=== PATIENT | female | born 1980 | race Two or more races ===

== ENCOUNTER 2019-12-17 22:42 | Emergency (ER) | payer SELFPAY ==
[~2019-12-17] VITALS: Ht 175.3 cm; Wt 90.0 kg
--- NOTE | 2019-12-18 00:09 | NUR ---
PT TO ROOM FROM LOBBY
[2019-12-18] MEDS ORDERED: KETOROLAC 30 MG/1 ML ONE (00:29)
[2019-12-18] MEDS ORDERED: ACETAMINOPHEN 500 MG TABLET ONE (00:30)
[2019-12-18] MEDS ORDERED: KETOROLAC 30 MG/1 ML IM ONE (00:30)
[2019-12-18] MEDS ORDERED: ACETAMINOPHEN 500 MG TABLET PO ONE (00:30)
[2019-12-18 00:40] LABS: HCG UR SG 1.013 (1.003-1.030); MICROSCOPIC AUTO
[2019-12-18 00:41] LABS: BASOPHILS # (AUTO) 0.04 x10^3/uL (0-0.1); BASOPHILS % (AUTO) 1 % (0-1); EOSINOPHILS # (AUTO) 0.21 x10^3/uL (0-0.4); EOSINOPHILS % (AUTO) 2 % (1-7); LYMPHOCYTES # (AUTO) 2.79 x10^3/uL (1-3.4); LYMPHOCYTES % (AUTO) 32 % (22-44); MD NO; MEAN CORPUSCULAR HEMOGLOBIN 28.6 pg (27.0-34.8); MEAN CORPUSCULAR HGB CONC 32.9 g/dL (32.4-35.8); MEAN CORPUSCULAR VOLUME 86.8 fL (80-100); MEAN PLATELET VOLUME 7.4 fL (7.4-10.4); MONOCYTES # (AUTO) 0.71 x10^3/uL (0.2-0.8); MONOCYTES % (AUTO) 8 % (2-9); NEUTROPHILS # (AUTO) 4.89 x10^3/uL (1.8-6.8); NEUTROPHILS % (AUTO) 57 % (42-75); PLATELET COUNT 348 x10^3/uL (130-400); RED BLOOD COUNT 4.59 x10^6/uL (3.82-5.3); RED CELL DISTRIBUTION WIDTH 13.3 % (9.6-15.2)
[2019-12-18 00:50] LABS: ALBUMIN 3.4 g/dL (3.4-5.0); ANION GAP 6 mmol/L (5-15); CALCIUM 8.6 mg/dL (8.5-10.1); CHLORIDE 107 mmol/L (98-107); CREATININE 0.74 mg/dL (0.55-1.02)
--- NOTE | 2019-12-18 01:36 | NUR ---
BREAK RN: DR. SOLORZANO IN TO DISCUSS POC WITH PT. AND FRIEND AT BS.
[2019-12-18] MEDS ORDERED: MECLIZINE CHEWABLE 25 MG TAB ONE (01:52)
[2019-12-18 01:53] VITALS: BP 115/68
[2019-12-18] MEDS ORDERED: MECLIZINE CHEWABLE 25 MG TAB PO ONE (02:00)
== END 2019-12-18 02:01 | disposition home or self-care (01) ==
LOC: ED 12-18 01:30
DX: S39.012A Strain of muscle, fascia and tendon of lower back, initial encounter (principal); R42 Dizziness and giddiness; R50.9 Fever, unspecified; R20.0 Anesthesia of skin; X58.XXXA Exposure to other specified factors, initial encounter; Y93.89 Activity, other specified; Y92.89 Other specified places as the place of occurrence of the external cause; Y99.8 Other external cause status
CPT/HCPCS: 36415; 71045; 80048; 81001; 81025; 82040; 85025; 87086; 96372; 99284; J1885